=== PATIENT | female | born 1985 | race Caucasian/White ===

== ENCOUNTER 2021-07-17 11:17 | Outpatient (CLI) | payer BC, SELFPAY ==
--- NOTE | ~2021-07-17 | MMUS_ITS ---
EXAMINATION: MM diagnostic migdalia BI w toshia, US breast LT limited HISTORY: Left breast lump at 6:00 for one month TECHNIQUE: Bilateral full-field ML, MLO and craniocaudal and spot left MLO and CC 3-D tomosynthesis i mages were performed and synthetic 2-D images were generated. CAD analysis was submitted and interpre ruba. High resolution complete left breast ultrasound including all 4 quadrants and subareolar area wa s performed. COMPARISON: 04/26/2008 left breast ultrasound 6 09/16/2013 right breast ultrasound radiology The occult posttraumatic right spot incomplete right ultrasound BREAST PARENCHYMAL COMPOSITION: The breasts are heterogeneously dense, which may obscure small masses . FINDINGS: MAMMOGRAPHIC FINDINGS: Interval 3 mm mass is suggested in the lower outer left breast (MLO Tomosynthesis image .) Possible architectural distortion in the upper anterior left breast on MLO view. Otherwise no suspicious mass, architectural distortion, malignant calcification, skin thickening or r etraction of either breast is detected. ULTRASOUND: 6:00 4 cm from nipple: Parallel circumscribed sonolucency measuring 5 x 2.3 x 4.1 mm, without interna l vascularity or suspicious shadowing, likely benign 8:00: Multiseptated 3.6 x 8.2 mm cyst No suspicious mass or shadowing of the left breast is detected. IMPRESSION: 1. No mammographic evidence of malignancy 2. Routine mammographic screening is recommended. BI-RADS Category 2: Benign finding(s). Reviewed, dictated and finalized at location A. IMPRESSION: 1. No mammographic evidence of malignancy 2. Routine mammographic screening is recommended. BI-RADS Category 2: Benign finding(s).
== END 2021-07-17 11:18 | disposition home or self-care (01) ==
LOC: ANHIMG 11:21
PROVIDERS: Visit Provider Obstetrics & Gynecology
DX: R92.8 Other abnormal and inconclusive findings on diagnostic imaging of breast (principal); N63.25 Unspecified lump in the left breast, overlapping quadrants; N60.02 Solitary cyst of left breast
CPT/HCPCS: 76641; 76642; 77062; 77066; G0279